=== PATIENT | female | born 1995 ===

== ENCOUNTER 2020-10-20 12:51 | Emergency (ER) | payer SELFPAY ==
--- NOTE | 2020-10-20 15:27 | Event Note ---
ED Screening Note Date of service: 10/20/20 Time: 15:26 ED Screening Note: 25-year-old female patient presents emergency department with complaints of left-sided chest pain, left upper quadrant abdominal pain, nausea, vomiting, and dizziness starting approximately 3 days ago. Patient has had one episode of nonbloody emesis today. No recent fall, trauma, injury. No medications prior to arrival. No known medical problems. No prior surgeries. No known sick contacts. No current steroid or antibiotic use. General: Awake, appropriately interactive, no acute distress. Neck: Supple. Full range of motion intact. Cardiovascular: Normal peripheral perfusion. Left chest wall tenderness. Pulmonary: No respiratory distress. Patient is speaking normally without use of accessory muscles. Abdomen: Left upper quadrant tenderness. Skin: No apparent rashes or lesions. Neurological: No facial asymmetry. Speech is clear. Follows commands. Patient is alert and oriented. Musculoskeletal: Moves all four extremities spontaneously with normal range of motion. Psych: Cooperative. Appropriate mood and affect. I have greeted and performed a focused rapid initial assessment of this patient. A comprehensive ED assessment and evaluation of the patient, analysis of all test results, and completion of the medical decision-making process will be conducted by additional ED providers. This initial assessment/diagnostic orders/clinical plan/treatment(s) is/are subject to change based on patients health status, clinical progression and re-assessment. Further treatment and workup at subsequent clinical provider's discretion. Patient/guardian urged not to elope from the ED as their condition may be serious if not clinically assessed and managed.
[2020-10-20 15:51] LABS: Basophils # (Auto) 0.1 K/mm3 (0.0-0.1); Basophils % (Auto) 0.5 % (0.0-1.8); Eosinophils # (Auto) 0.1 K/mm3 (0.0-0.4); Eosinophils % (Auto) 0.9 % (0.0-4.3); Hematocrit 38.5 % (30.3-42.9); Hemoglobin 12.5 gm/dl (10.1-14.3); Lymphocytes # (Auto) 2.9 K/mm3 (1.2-5.4); Lymphocytes % (Auto) 27.3 % (13.4-35.0); Mean Corpuscular HGB Conc 32 % (30-34); Mean Corpuscular Volume 82 fl (79-97); Monocytes # (Auto) 0.8 K/mm3 (0.0-0.8); Monocytes % (Auto) 7.6 % (0.0-7.3); Platelet Count 297 K/mm3 (140-440); Red Blood Count 4.67 M/mm3 (3.65-5.03); Red Cell Distribution Width 13.9 % (13.2-15.2)
[2020-10-20 16:13] LABS: Alanine Aminotransferase 45 units/L (7-56); Albumin 4.7 g/dL (3.9-5); Blood Urea Nitrogen 16 mg/dL (7-17); Calcium 9.7 mg/dL (8.4-10.2); Hemolysis Index 2
[2020-10-20 16:25] LABS: BUN/Creatinine Ratio 32
--- NOTE | 2020-10-20 16:48 | XRay Report ---
CHEST 2 VIEWS INDICATION / CLINICAL INFORMATION: chest pain. COMPARISON: None available. FINDINGS: SUPPORT DEVICES: None. HEART / MEDIASTINUM: No significant abnormality. LUNGS / PLEURA: No significant pulmonary or pleural abnormality. No pneumothorax. ADDITIONAL FINDINGS: No significant additional findings. IMPRESSION: No significant abnormality Signer Name: Robb Reddy MD FACR Signed: 10/20/2020 4:44 PM Workstation Name: [id number]
[2020-10-20] MEDS ORDERED: FAMOTIDINE 20 MG TAB PO ONE (16:52)
[2020-10-20] MEDS ORDERED: ONDANSETRON 4 MG ODT TAB PO ONE (16:52)
[2020-10-20] MEDS ORDERED: ACETAMINOPHEN 325 MG TAB PO ONE (16:52)
[2020-10-20 16:55] LABS: Bilirubin,Urine NEG (Negative); Blood,Urine NEG (Negative); Color,Urine Yellow (Yellow); Mucus,Urine FEW /HPF; Protein,Urine <15 mg/dL mg/dL (Negative); Urobilinogen,Urine < 2.0 mg/dL (<2.0)
--- NOTE | 2020-10-20 16:57 | Emergency Department Report ---
ED Abdominal Pain HPI - General Chief Complaint: Abdominal Pain Stated Complaint: HEAD PAIN, ABD PAIN, VOMITING Time Seen by Provider: 10/20/20 16:33 Source: patient Mode of arrival: Ambulatory Limitations: No Limitations - History of Present Illness Initial Comments: Pt belarusian speaking. 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 She states she has been having left upper quandrant pain x 1 week. She states it has been constant. She reports associated nausea and vomiting for the past 4 to 5 days. She denies any hematemesis, diarrhea, UTI symptoms or abnormal vaginal symptoms. She states that her last menstrual cycle was September 18. She reports prior cholecystectomy. She also complains of pain to the left breast mainly on the lateral aspect of the left breast for the past 3 days and she feels like there is a small lump in the left breast. She denies any associated redness, bruising, or nipple discharge. She is not currently breast-feeding. She denies any known family history of breast cancers. She denies any shortness of breath, cough, pain in the chest or any other symptoms at this time. MD Complaint: abdominal pain, other (Left breast pain) -: days(s) Location: [facility] - Related Data Previous Rx's Medication Instructions Recorded Last Taken Type Acetaminophen [Acetaminophen 8 650 mg PO Q8HR PRN #30 tablet.er 10/20/20 Unknown Rx Hour] Famotidine [Pepcid] 20 mg PO BID #30 tablet 10/20/20 Unknown Rx Ondansetron [Zofran Odt] 4 mg PO Q8HR PRN #15 tab.rapdis 10/20/20 Unknown Rx Pantoprazole [Protonix] 40 mg PO QDAY #30 tablet 10/20/20 Unknown Rx Allergies Allergy/AdvReac Type Severity Reaction Status Date / Time No Known Allergies Allergy Unverified 10/20/20 15:03 ED Review of Systems ROS: Stated complaint: HEAD PAIN, ABD PAIN, VOMITING Other details as noted in HPI Comment: All other systems reviewed and negative Constitutional: denies: chills, fever Eyes: denies: eye pain, eye discharge, vision change ENT: denies: ear pain, throat pain, dental pain, hearing loss, epistaxis, congestion Respiratory: denies: cough, orthopnea, shortness of breath, SOB with exertion, SOB at rest, wheezing Cardiovascular: denies: chest pain, palpitations, dyspnea on exertion, edema, syncope, paroxysmal nocturnal dyspnea Gastrointestinal: abdominal pain, nausea, vomiting. denies: diarrhea, constipation, hematemesis, melena, hematochezia Genitourinary: denies: urgency, dysuria, frequency, hematuria, discharge, abnormal menses, dyspareunia Musculoskeletal: denies: back pain, joint swelling, arthralgia Skin: other (Left breast pain, lump ). denies: rash, lesions, change in color, change in hair/nails, pruritus Neurological: denies: headache, weakness, numbness, paresthesias, confusion, abnormal gait, vertigo Psychiatric: denies: anxiety, depression, auditory hallucinations, visual hallucinations, homicidal thoughts, suicidal thoughts Hematological/Lymphatic: denies: easy bleeding, easy bruising, swollen glands ED Past Medical Hx - Past Medical History Hx Kidney Stones: Yes - Surgical History Additional Surgical History: Kidney stone rmoved - Social History Smoking Status: Never Smoker Substance Use Type: None - Medications Home Medications: Home Medications Medication Instructions Recorded Confirmed Last Taken Type Acetaminophen [Acetaminophen 8 650 mg PO Q8HR PRN #30 tablet.er 10/20/20 Unknown Rx Hour] Famotidine [Pepcid] 20 mg PO BID #30 tablet 10/20/20 Unknown Rx Ondansetron [Zofran Odt] 4 mg PO Q8HR PRN #15 tab.rapdis 10/20/20 Unknown Rx Pantoprazole [Protonix] 40 mg PO QDAY #30 tablet 10/20/20 Unknown Rx ED Physical Exam - General Limitations: No Limitations General appearance: alert, in no apparent distress - Head Head exam: Present: atraumatic, normocephalic, normal inspection - Eye Eye exam: Present: normal appearance, PERRL, EOMI Pupils: Present: normal accommodation - ENT ENT exam: Present: normal exam, mucous membranes moist, TM's normal bilaterally - Neck Neck exam: Present: normal inspection, full ROM - Respiratory Respiratory exam: Present: normal lung sounds bilaterally. Absent: respiratory distress, wheezes, rales, rhonchi - Cardiovascular Cardiovascular Exam: Present: regular rate, normal rhythm, normal heart sounds - GI/Abdominal GI/Abdominal exam: Present: soft, tenderness (Mild tenderness left lower quadrant). Absent: distended, guarding, rebound, rigid - Neurological Exam Neurological exam: Present: alert, oriented X3, CN II-XII intact, normal gait - Psychiatric Psychiatric exam: Present: normal affect, normal mood - Skin Skin exam: Present: intact - Other Other exam information: Breast Exam: There is mild tenderness to palpation to the lateral aspect of the left breast around 3:00 but no palpable mass, no erythema, no swelling, no nipple discharge or dimpling noted. No axillary lymph nodes or swelling noted to the left axilla. ED Course Vital Signs 10/20/20 10/20/20 10/20/20 15:03 17:52 18:02 Temperature 98.8 F Pulse Rate 75 79 Respiratory 16 16 18 Rate Blood Pressure 111/77 Blood Pressure 136/86 [Left] O2 Sat by Pulse 98 100 Oximetry ED Medical Decision Making - Lab Data Result diagrams: 10/20/20 15:34 10/20/20 15:34 - Radiology Data Radiology results: report reviewed Patient: NICHOLE MANDUJANO MR#: [id number] : 1995 Acct:[id number] Age/Sex: 25 / F ADM Date: 10/20/20 Loc: ED Attending Dr: Ordering Physician: MARLENY RAMÍREZ Date of Service: 10/20/20 Procedure(s): XR chest routine 2V Accession Number(s): [id number] cc: MARLENY RAMÍREZ Fluoro Time In Minutes: CHEST 2 VIEWS INDICATION / CLINICAL INFORMATION: chest pain. COMPARISON: None available. FINDINGS: SUPPORT DEVICES: None. HEART / MEDIASTINUM: No significant abnormality. LUNGS / PLEURA: No significant pulmonary or pleural abnormality. No pneumothorax. ADDITIONAL FINDINGS: No significant additional findings. IMPRESSION: No significant abnormality Signer Name: Robb Reddy MD FACR Signed: 10/20/2020 4:44 PM Workstation Name: [id number] Transcribed By: MS Dictated By: Robb Reddy MD Electronically Authenticated By: Robb Reddy MD Signed Date/Time: 10/20/201643 DD/ 42 TD/TT: Print Cancel - Medical Decision Making Labs reviewed and unremarkable. CXR shows nothing acute. Pt has pain mainly in left breast, not in chest and pain left UQ abdomen Nothing obvious on breast exam except mild pain on palpation at around 3 oclock of left breast She has non surgical abdominal exam. She is not toxic or ill-appearing and is not in any acute distress. She is well-hydrated neurologically intact with a normal gait in the ER. Discussed lab results and xray results with patient. Recommend that she follow with OBGYN for outpatient mammogram. Her left UQ pain could be related to gastritis. Her history, exam, diagnostic testing and current condition do not suggest acute appendicitis, bowel obstruction, acute cholecystitis, acute pancreatitis bowel perforation, severe diverticulitis, volvulus, sepsis or other significant pathology to warrant further testing, continued ED treatment, admission or surgical evaluation at this point. Discussed suspected diagnosis and treatment plan with patient. She expressed understanding of instructions and agree with plan. Patient stable at time of discharge Critical care attestation.: If time is entered above; I have spent that time in minutes in the direct care of this critically ill patient, excluding procedure time. ED Disposition Clinical Impression: Breast pain, left, Left upper quadrant abdominal pain, Gastritis Disposition: TO HOME OR SELFCARE Is pt being admited?: No Does the pt Need Aspirin: No Condition: Stable Instructions: Gastritis, Adult, [id number], Breast Tenderness, Abdominal Pain, Adult, [id number], Abdominal Pain (ED) Additional Instructions: Recommend I take the Zofran, the Pepcid and the Protonix as prescribed. Recommend that you take the Tylenol as prescribed to help with pain. It is important that you follow-up with the SERVICE LEARNING COORDINATOR listed on your discharge instructions for outpatient breast mammogram. Also follow-up with primary care doctor listed on your discharge instructions. Return to the ER if your symptoms changes or worsens in any way. Prescriptions: Acetaminophen [Acetaminophen 8 Hour] 650 mg PO Q8HR PRN #30 tablet.er PRN Reason: PAin Famotidine [Pepcid] 20 mg PO BID #30 tablet Pantoprazole [Protonix] 40 mg PO QDAY #30 tablet Ondansetron [Zofran Odt] 4 mg PO Q8HR PRN #15 tab.rapdis PRN Reason: Vomiting Referrals: [facility] [Provider Group] - 3-5 Days [facility] [Provider [facility]] - 3-5 Days [facility] [Provider Group] - 3-5 Days (Primary care physician) ROLF RYAN MD [Staff Physician] - 3-5 Days (Primary care physician) Forms: Work/School Release Form(ED) Time of Disposition: 17:21 Print Language: [id number]
[2020-10-20 18:04] VITALS: BP 136/86
== END 2020-10-20 18:02 | disposition home or self-care (01) ==
LOC: ED 12:51
DX: K29.70 Gastritis, unspecified, without bleeding (principal); N64.4 Mastodynia; Z87.442 Personal history of urinary calculi; Z79.899 Other long term (current) drug therapy
CPT/HCPCS: 36415; 71046; 80053; 81001; 83690; 83735; 84703; 85025; 99284; Q0162